=== PATIENT | female | born 1965 | race African-American/Black ===

== ENCOUNTER 2017-02-22 11:15 | Emergency (ER) | payer BC | END 2017-02-22 11:27 | disposition home or self-care (01) | LOC: ER 11:15 | PROC: 0H90XZZ Drainage of Scalp Skin, External Approach (ICD-10-PCS; principal; 2017-02-22) | DX: L02.811 Cutaneous abscess of head [any part, except face] (principal); I10 Essential (primary) hypertension | CPT/HCPCS: 99283; A9270-GY ==

== ENCOUNTER 2017-02-23 19:14 | Emergency (ER) | payer OTHER | END 2017-02-23 20:57 | disposition home or self-care (01) | LOC: ER 19:14 | DX: S20.229A Contusion of unspecified back wall of thorax, initial encounter (principal); W22.8XXA Striking against or struck by other objects, initial encounter | CPT/HCPCS: 72040; 72072; 99283 ==